=== PATIENT | female | born 1970 | race African-American/Black ===

== ENCOUNTER 2019-01-28 21:24 | Emergency (ER) | payer OTHER ==
[~2019-01-28] VITALS: Ht 154.9 cm; Wt 68.0 kg
[2019-01-28 21:32] VITALS: BP 160/90
[2019-01-28] MEDS ORDERED: LIPITOR80 MG ORAL (21:32)
[2019-01-28] MEDS ORDERED: METFORMIN HCL1000 M2 ORAL (21:32)
--- NOTE | 2019-01-28 21:32 | NUR ---
ED Nurse Note: Patient presents with complaints of dizziness x 5 days.
[2019-01-28 22:07] VITALS: BP 160/90
[2019-01-28 22:20] LABS: APPEARANCE,URINE CLEAR; BILIRUBIN, URINE NEGATIVE (NEGATIVE); COLOR,URINE PALE YELLOW; GLUCOSE, URINE (UA) NEGATIVE (NEGATIVE); KETONES,URINE NEGATIVE (NEGATIVE); LEUKOCYTE ESTERASE ,URINE 3+ (NEGATIVE); NITRITE,URINE NEGATIVE (NEGATIVE); PH,URINE 5 (4.5-8.0); PROTEIN,URINE NEGATIVE (NEGATIVE); UROBILINOGEN,URINE NORMAL MG/DL (0.0-1.0)
[2019-01-28 22:25] LABS: BASOPHILS % (AUTO) 1.4 % (0.0-2.0); EOSINOPHILS % (AUTO) 2.1 % (0.0-3.0); HEMATOCRIT 39.2 % (37.0-47.0); HEMOGLOBIN 12.9 G/DL (12.0-16.0); LYMPHOCYTES % (AUTO) 53.4 % (20.0-45.0); MEAN CORPUSCULAR VOLUME 90 FL (80-99); MONOCYTES % (AUTO) 6.3 % (1.0-10.0); NEUTROPHILS % (AUTO) 36.8 % (45.0-75.0); PLATELET COUNT 356 K/UL (150-450); RED BLOOD COUNT 4.37 M/UL (4.20-5.40); RED CELL DISTRIBUTION WIDTH 11.2 % (11.6-14.8); WHITE BLOOD COUNT 10.1 K/UL (4.8-10.8)
[2019-01-28 22:30] LABS: ANION GAP 7 mmol/L (5-15); BLOOD UREA NITROGEN 12 mg/dL (7-18); CALCIUM 9.7 MG/DL (8.5-10.1); CARBON DIOXIDE 30 MMOL/L (21-32); CHLORIDE 101 MMOL/L (98-107); CREATININE 0.8 MG/DL (0.55-1.30); POTASSIUM 3.4 MMOL/L (3.5-5.1); SODIUM 138 MMOL/L (136-145)
[2019-01-28 22:34] LABS: ALANINE AMINOTRANSFERASE 29 U/L (12-78); ALBUMIN 4.1 G/DL (3.4-5.0); ALBUMIN/GLOBULIN RATIO 0.8 (1.0-2.7); ALKALINE PHOSPHATASE 137 U/L (46-116); ASPARTATE AMINO TRANSFERASE 16 U/L (15-37); BILIRUBIN,TOTAL 0.5 MG/DL (0.2-1.0)
[2019-01-28 22:35] VITALS: BP 128/65
--- NOTE | 2019-01-28 22:42 | NUR ---
ED Nurse Note: Patient is resting comfortably, fluids running, no complaints of pain at this time.
--- NOTE | 2019-01-28 22:43 | NUR ---
ED Nurse Note: Patient vital signs are stable.
--- NOTE | 2019-01-28 23:35 | NUR ---
ED Nurse Note: Patient went down for CT of the head.
--- NOTE | 2019-01-28 23:37 | Emergency Room Report ---
History of Present Illness General Chief Complaint: General Complaint Source: Patient Present Illness HPI Patient presents with several days of lightheadedness Weakness reports that she had her hemoglobin A1c checked by her primary physician and was over 12 Patient is a diabetic and is on metformin Denies any chest pain or shortness of breath denies any vomiting Denies any focal weakness patient reports that when she is walking she feels heavy in her legs Reported that several days ago she had an episode of some slurring of her speech that cleared after several hours Allergies: Coded Allergies: No Known Allergies (Verified Allergy, Mild, 02/08/10) Patient History Past Medical History: see triage record Pertinent Family History: none Last Menstrual Period: RANJAN Reviewed Nursing Documentation: PMH: Agreed; PSxH: Agreed Nursing Documentation-PMH Past Medical History: No History, Except For Hx Diabetes: Yes Review of Systems All Other Systems: negative except mentioned in HPI Physical Exam Vital Signs Date Time Temp Pulse Resp B/P (MAP) Pulse Ox O2 Delivery O2 Flow Rate FiO2 01/28/19 21:28 98.2 77 16 160/90 98 Room Air Sp02 EP Interpretation: reviewed, normal General Appearance: well appearing, no apparent distress Head: normocephalic, atraumatic Eyes: bilateral eye PERRL, bilateral eye EOMI ENT: hearing grossly normal, normal pharynx, TMs + canals normal, uvula midline Neck: full range of motion, supple, no meningismus, no bony tend Respiratory: lungs clear, normal breath sounds, no rhonchi, no respiratory distress, no retraction, no accessory muscle use Cardiovascular #1: normal peripheral pulses, regular rate, rhythm, no edema, no gallop, no JVD, no murmur Gastrointestinal: normal bowel sounds, non tender, soft, no mass, no organomegaly, non-distended, no guarding, no hernia, no pulsatile mass, no rebound Genitourinary: no CVA tenderness Musculoskeletal: normal inspection Neurologic: oriented x3, responsive, correctional supervising cook III-XII nml as tested, motor strength/ tone normal, sensory intact Psychiatric: mood/affect normal Skin: normal color, no rash, warm/dry, palpation normal Lymphatic: normal inspection, no adenopathy Medical Decision Making Diagnostic Impression: Primary Impression: Weakness Additional Impression: Diabetes ER Course Patient is a fairly complex patient with multiple differential to consideration including but not limited to cardiac cardiopulmonary and vascular emergencies Other neurological pathology such as CVA also entertained CT head does not show any acute disease patient's blood work all within normal limits Patient's glucose was mildly elevated however no obvious acidosis And patient stable for close outpatient follow-up Labs Test 01/28/19 21:54 01/28/19 22:00 White Blood Count 10.1 K/UL (4.8-10.8) Red Blood Count 4.37 M/UL (4.20-5.40) Hemoglobin 12.9 G/DL (12.0-16.0) Hematocrit 39.2 % (37.0-47.0) Mean Corpuscular Volume 90 FL (80-99) Mean Corpuscular Hemoglobin 29.6 PG (27.0-31.0) Mean Corpuscular Hemoglobin Concent 33.1 G/DL (32.0-36.0) Red Cell Distribution Width 11.2 % (11.6-14.8) Platelet Count 356 K/UL (150-450) Mean Platelet Volume 6.6 FL (6.5-10.1) Neutrophils (%) (Auto) 36.8 % (45.0-75.0) Lymphocytes (%) (Auto) 53.4 % (20.0-45.0) Monocytes (%) (Auto) 6.3 % (1.0-10.0) Eosinophils (%) (Auto) 2.1 % (0.0-3.0) Basophils (%) (Auto) 1.4 % (0.0-2.0) Sodium Level 138 MMOL/L (136-145) Potassium Level 3.4 MMOL/L (3.5-5.1) Chloride Level 101 MMOL/L (98-107) Carbon Dioxide Level 30 MMOL/L (21-32) Anion Gap 7 mmol/L (5-15) Blood Urea Nitrogen 12 mg/dL (7-18) Creatinine 0.8 MG/DL (0.55-1.30) Estimat Glomerular Filtration Rate > 60 mL/min (>60) Glucose Level 241 MG/DL (74-106) Calcium Level 9.7 MG/DL (8.5-10.1) Total Bilirubin 0.5 MG/DL (0.2-1.0) Aspartate Amino Transf (AST/SGOT) 16 U/L (15-37) Alanine Aminotransferase (ALT/SGPT) 29 U/L (12-78) Alkaline Phosphatase 137 U/L (46-116) Total Protein 9.2 G/DL (6.4-8.2) Albumin 4.1 G/DL (3.4-5.0) Globulin 5.1 g/dL Albumin/Globulin Ratio 0.8 (1.0-2.7) Lipase 197 U/L (73-393) Urine Color Pale yellow Urine Appearance Clear Urine pH 5 (4.5-8.0) Urine Specific [place] 1.015 (1.005-1.035) Urine Protein Negative (NEGATIVE) Urine Glucose (UA) Negative (NEGATIVE) Urine Ketones Negative (NEGATIVE) Urine Blood 1+ (NEGATIVE) Urine Nitrite Negative (NEGATIVE) Urine Bilirubin Negative (NEGATIVE) Urine Urobilinogen Normal MG/DL (0.0-1.0) Urine Leukocyte Esterase 3+ (NEGATIVE) Urine RBC 0-2 /HPF (0 - 2) Urine WBC 2-4 /HPF (0 - 2) Urine Squamous Epithelial Cells Few /LPF (NONE/OCC) Urine Bacteria Few /HPF (NONE) Urine Opiates Screen Negative (NEGATIVE) Urine Barbiturates Screen Negative (NEGATIVE) Phencyclidine (PCP) Screen Negative (NEGATIVE) Urine Amphetamines Screen Negative (NEGATIVE) Urine Benzodiazepines Screen Negative (NEGATIVE) Urine Cocaine Screen Negative (NEGATIVE) Urine Marijuana (THC) Screen Negative (NEGATIVE) Rhythm Strip Diag. Results EP Interpretation: yes Rate: 60 Rhythm: NSR, no PVC's, no ectopy CT/MRI/US Diagnostic Results CT/MRI/US Diagnostic Results : Impression CT head no acute disease Last Vital Signs Date Time Temp Pulse Resp B/P (MAP) Pulse Ox O2 Delivery O2 Flow Rate FiO2 01/28/19 22:35 98.2 53 18 128/65 100 Room Air Status: improved Disposition: HOME, SELF-CARE Condition: Improved Referrals: NON PHYSICIAN (PCP) Additional Instructions: Patient is provided with the discharge instructions notified to follow up with primary doctor in the next 2-3 days otherwise return to the er with any worsening symptoms. Please note that this report is being documented using [employer] technology. This can lead to erroneous entry secondary to incorrect interpretation by the dictating instrument. Belinda Ruiz DO Jan 28, 2019 23:37
--- NOTE | 2019-01-28 23:46 | NUR ---
ED Nurse Note: Patient returned from CT
[2019-01-29 01:06] VITALS: BP 128/65
--- NOTE | 2019-01-29 01:06 | NUR ---
ED Nurse Note: Abbe cleared for discharge per ERMD. Patient is A&Ox4, ambulatory with steady gait, vital signs stble. Patient verbalized understanding of discharge instructions. Patient departed with all personal belongings, accompanied by her friend.
--- NOTE | 2019-01-29 09:23 | Diagnostic Imaging Report ---
Indications: Weak and dizzy for one day Technique: Spiral acquisitions obtained through the brain. Angled axial and coronal 5 x 5 mm slices were reconstructed. Total dose length product 1330.19 mGycm. CTDI vol(s) 70.38 mGy. Dose reduction achieved using automated exposure control Comparison: None. Findings: No acute intracranial hemorrhage or edema. No mass effect nor midline shift. Normal-sized ventricles and extra axial CSF spaces. Normal persaud-white differentiation. The calvarium is intact. Visualized orbits are unremarkable. There is some right mastoid opacification Impression: Negative for acute intracranial bleed or mass effect Incidental finding of minimal right mastoid effusion This agrees with the preliminary interpretation provided overnight by [facility]. The CT scanner at [facility] is accredited by the [employer] and the scans are performed using protocols designed to limit radiation exposure to as low as reasonably achievable to attain images of sufficient resolution adequate for diagnostic evaluation.
== END 2019-01-29 01:06 | disposition home or self-care (01) ==
LOC: EMR 21:48
DX: R53.1 Weakness (principal); E11.9 Type 2 diabetes mellitus without complications; R42 Dizziness and giddiness
CPT/HCPCS: 36415; 70450; 80053; 80307; 81003; 82962; 83690; 85025; 96360; 99284